=== PATIENT | male | born 2000 | race Two or more races ===

== ENCOUNTER 2025-04-01 23:00 | Emergency (ER) | payer OTHER ==
[~2025-04-01] VITALS: Ht 162.6 cm; Wt 71.3 kg
[2025-04-01 23:09] VITALS: TEMP 96.2
[2025-04-02] MEDS: NS (Normal Saline) 0.9% 1,000 ML IV ONE (00:20)
[2025-04-02 03:30] VITALS: O2SAT 94
[2025-04-02 03:38] VITALS: BP 135/85
== END 2025-04-02 03:39 | disposition home or self-care (01) ==
LOC: M ED 23:00 → EDBD 23:00 → M ED 04-02 03:39
DX: S02.2XXA Fracture of nasal bones, initial encounter for closed fracture (principal); F10.120 Alcohol abuse with intoxication, uncomplicated; Y92.9 Unspecified place or not applicable; Y93.9 Activity, unspecified; Y99.9 Unspecified external cause status; F17.290 Nicotine dependence, other tobacco product, uncomplicated

== ENCOUNTER 2025-04-09 07:21 | Emergency (ER) | payer OTHER ==
[~2025-04-09] VITALS: Ht 165.1 cm; Wt 73.3 kg
[2025-04-09] MEDS: LIDOCAINE 5% PATCH TD ONE (09:39)
[2025-04-09] MEDS: KETOROLAC 30 MG/ML 1 ML VIAL IV ONE (09:39)
[2025-04-09] MEDS: NS (Normal Saline) 0.9% 1,000 ML IV ONE (09:40)
[2025-04-09 09:46] LABS: BASO # 0.0 10^3/uL (0.0-0.2); BASO % 0.3 % (0.0-1.0); EOS # 0.2 10^3/uL (0.0-0.5); EOS % 3.8 % (0.0-3.0); LYMPH # 2.6 10^3/uL (1.5-5.0); LYMPH % 41.0 % (24.0-44.0); MONO # 0.5 10^3/uL (0.0-0.8); MONO % 7.7 % (2.0-8.0); NEUTROPHILS # 3.0 10^3/uL (1.5-8.5); NEUTROPHILS % 46.9 % (36.0-66.0); PLATELET COUNT, AUTOMATED 282 10^3/uL (150-450)
[2025-04-09 10:01] LABS: AMPHETAMINES LEVEL URINE NEGATIVE (NEGATIVE); BARBITURATES URINE NEGATIVE (NEGATIVE); BENZODIAZEPINES URINE NEGATIVE (NEGATIVE); CANNABINOIDS URINE NEGATIVE (NEGATIVE); COCAINE METABOLITE URINE NEGATIVE (NEGATIVE); METHADONE URINE NEGATIVE (NEGATIVE); OPIATES URINE NEGATIVE (NEGATIVE); PHENCYCLIDINE URINE NEGATIVE (NEGATIVE)
[2025-04-09 10:19] LABS: CALCIUM LEVEL 8.5 MG/DL (8.5-10.1); CARBON DIOXIDE LEVEL 25 MMOL/L (20-31); CHLORIDE LEVEL 105 MMOL/L (98-107); CREATININE FOR GFR 0.75 MG/DL (0.70-1.30); GLOMERULAR FILTRATION RATE > 90.0 (>60); MAGNESIUM LEVEL 2.2 MG/DL (1.8-2.4); POTASSIUM SERUM 4.3 MMOL/L (3.5-5.1); SODIUM LEVEL 143 MMOL/L (136-145)
[2025-04-09 11:45] LABS: CK-MB VALUE MASS 5.8 NG/ML (<3.6); CPK CREATINE PHOSPHOKINASE 1675 U/L (46-171); ETHYL ALCOHOL (ETHANOL) 0.345 % (0.000-0.010); MB/CK RELATIVE INDEX 0.34 (< OR =4)
[2025-04-09 15:30] VITALS: BP 115/70; O2SAT 96
[2025-04-09] MEDS ORDERED: LIDO1ADH93 TD (15:41)
[2025-04-09 15:43] VITALS: TEMP 97.2
== END 2025-04-09 15:57 | disposition home or self-care (01) ==
LOC: M ED 07:21
DX: F10.120 Alcohol abuse with intoxication, uncomplicated (principal); S06.0X0A Concussion without loss of consciousness, initial encounter; Y92.9 Unspecified place or not applicable; Y93.9 Activity, unspecified; Y99.0 Civilian activity done for income or pay; W01.0XXA Fall on same level from slipping, tripping and stumbling without subsequent striking against object, initial encounter; M51.86 Other intervertebral disc disorders, lumbar region; Z79.899 Other long term (current) drug therapy
CPT/HCPCS: 70450; 71045; 72131; 80048; 80307; 82077; 82550; 82553; 83735; 84443; 84484; 85025; 93005; 93041; 94760; 96361; 96374; 99285; J1885